=== PATIENT | female | born 1990 | race Caucasian/White ===

== ENCOUNTER 2019-08-04 10:23 | Inpatient (IN) | payer OTHER ==
[~2019-08-04] VITALS: Ht 167.6 cm; Wt 108.0 kg
[2019-08-04] MEDS ORDERED: PREN-380 PO (12:41)
[2019-08-04] MEDS ORDERED: CARBOPROST 250 MCG/ML AMP IM PRN (12:45)
[2019-08-04] MEDS ORDERED: PROMETHAZINE 25 MG/ML VIAL IVP PRN (12:45)
[2019-08-04] MEDS ORDERED: NALBUPHINE 10 MG/ML AMP IVP PRN (12:45)
[2019-08-04] MEDS ORDERED: METHYLERGONOVINE 0.2 MG/ML AMP IM PRN (12:45)
[2019-08-04] MEDS ORDERED: MISOPROSTOL 25 MCG TAB ONE (13:00)
[2019-08-04] MEDS: MISOPROSTOL 25 MCG TAB VG SCH ×2 (13:20→17:37)
[2019-08-04 13:28] LABS: APPEARANCE,URINE CLEAR (CLEAR); BILIRUBIN,URINE NEGATIVE (NEGATIVE); BLOOD, URINE NEGATIVE (NEGATIVE); COLOR,URINE YELLOW (YELLOW); LEUKOCYTE ESTERASE ,URINE NEGATIVE (NEGATIVE); NITRITE, URINE NEGATIVE (NEGATIVE); PH,URINE 5.5 (5.0-9.0); UGLUCOSE NEGATIVE (NEGATIVE)
[2019-08-04 13:55] LABS: ANION GAP 15.5 (8-16); CARBON DIOXIDE 23.3 mmol/L (21-32); CREATININE 0.6 mg/dL (0.6-1.3); POTASSIUM 3.8 mmol/L (3.5-5.1)
[2019-08-04 14:01] LABS: ALBUMIN 2.7 g/dL (3.4-5.0); TOTAL BILIRUBIN 0.3 mg/dL (0.0-1.0)
[2019-08-04 14:11] LABS: BASOPHILS % (AUTO) 0.1 % (0.0-2.0); EOSINOPHILS # (AUTO) 0.1 K/uL (0-0.4); EOSINOPHILS % (AUTO) 1.4 % (0.0-4.0); HEMATOCRIT 38.5 % (36-48); HEMOGLOBIN 12.9 g/dL (12.0-16.0); LYMPHOCYTES # (AUTO) 2.3 K/uL (2.5-16.5); LYMPHOCYTES % (AUTO) 23.5 % (20.5-51.1); MEAN CORPUSCULAR HEMOGLOBIN 29 pg (27-31); MEAN CORPUSCULAR HGB CONC 34 g/dL (33-37); MEAN CORPUSCULAR VOLUME 86.9 fL (80-94); MONOCYTES # (AUTO) 0.4 K/uL (0.8-1.0); MONOCYTES % (AUTO) 3.8 % (1.7-9.3); NEUTROPHILS # (AUTO) 7.1 K/uL (1.8-7.7); NEUTROPHILS % (AUTO) 71.2 % (42.2-75.2); PLATELET COUNT (AUTO) 203 K/uL (140-450); RED BLOOD CELL COUNT(AUTO) 4.43 MIL/uL (4.20-5.40); RED CELL DISTRIBUTION WIDTH 12.8 % (11.6-13.7); WHITE BLOOD COUNT (AUTO) 9.9 K/uL (4.8-10.8)
[2019-08-04 19:12] VITALS: BP 137/64
[2019-08-04] MEDS ORDERED: OXYTOCIN 20 UNITS in LACTATED RINGERS 1,000 ML IV SCH (19:40)
[2019-08-04] MEDS: LACTATED RINGERS 1,000 ML IV SCH ×2 (20:29→22:33)
[2019-08-05] MEDS: MISOPROSTOL 25 MCG TAB VG SCH (00:26)
[2019-08-05] MEDS ORDERED: OXYTOCIN 20 UNITS/LR PREMIX 1,000 ML IV ONE (05:09)
[2019-08-05] MEDS: LACTATED RINGERS 1,000 ML IV SCH (06:34)
--- NOTE | 2019-08-05 08:31 | NUR ---
PATIENT HAS BEEN SCREENED AND CATEGORIZED LOW NUTRITION RISK. PATIENT WILL BE SEEN WITHIN 7 DAYS OF ADMISSION. 08/10/[address]
[2019-08-05] MEDS ORDERED: OXYTOCIN 10 UNITS/ML VIAL ONE (12:09)
[2019-08-05] MEDS ORDERED: TEMAZEPAM 15 MG CAP PO PRN (14:25)
[2019-08-05] MEDS ORDERED: oxyCODONE/APAP 5/325 MG 1 TAB TAB PO PRN (14:25)
[2019-08-05] MEDS ORDERED: HYDROcodone/APAP 5/325 MG 1 TAB TAB PO PRN (14:25)
[2019-08-05] MEDS ORDERED: BENZOCAINE/MENTHOL 20%-0.5% 60 GM CAN TP PRN (14:25)
[2019-08-05] MEDS: IBUPROFEN 800 MG TAB PO PRN (23:10)
[2019-08-06] MEDS: IBUPROFEN 800 MG TAB PO PRN (08:29)
[2019-08-06 09:42] LABS: HEMATOCRIT 34.1 % (36-48); HEMOGLOBIN 11.3 g/dL (12.0-16.0)
[2019-08-06] MEDS ORDERED: DOCUSATE SOD/SENNA 50/8.6 MG 1 TAB PO SCH (21:00)
[2019-08-07] MEDS ORDERED: FERR325E14 PO (09:42)
[2019-08-07] MEDS ORDERED: IBUP-2213 PO (09:44)
== END 2019-08-07 10:30 | disposition home or self-care (01) | DRG 807 ==
LOC: MLD 10:23 → MFCC 08-05 17:29
PROVIDERS: ADMIT Obstetrics & Gynecology; ATTEND Obstetrics & Gynecology
PROC: 10E0XZZ Delivery of Products of Conception, External Approach (ICD-10-PCS; principal; 2019-08-05)
PROC: 10907ZC Drainage of Amniotic Fluid, Therapeutic from Products of Conception, Via Natural or Artificial Opening (ICD-10-PCS; 2019-08-05)
PROC: 3E0P7VZ Introduction of Hormone into Female Reproductive, Via Natural or Artificial Opening (ICD-10-PCS; 2019-08-05)
PROC: 3E0234Z Introduction of Serum, Toxoid and Vaccine into Muscle, Percutaneous Approach (ICD-10-PCS; 2019-08-06)
DX: O80 Encounter for full-term uncomplicated delivery (principal); Z37.0 Single live birth; Z3A.39 39 weeks gestation of pregnancy; Z23 Encounter for immunization
CPT/HCPCS: 36415; 59200; 59409; 80053; 81003; 85018; 85025; 86592; 86886; 86900; 86901; 90715; J2300; J2550; J2590; J7120